=== PATIENT | female | born 1925 | race Caucasian/White ===

== ENCOUNTER 2017-04-01 11:22 | Emergency (ER) | payer MEDICARE, OTHER ==
[~2017-04-01] VITALS: Ht 154.9 cm; Wt 67.0 kg
[~2017-04-01 11:22] MED LIST: CITA20TA4 PO; IBUP1TAB5 PO; LORA0.5T PO; POTA1080 PO; TRAZ50TA12 PO; VITA10002 PO; [UNRECOGNIZED DRUG - CODE] PO
[2017-04-01 11:32] VITALS: BP 116/58; PULSE 88; RESP 16; TEMP 99.2; O2SAT 99
--- NOTE | 2017-04-01 11:44 | PD ---
HPI Chief Complaint: hip pain Time Seen by Provider: 11:25 Travel History International Travel<30 days: No Contact w/Intl Traveler<30days: No Traveled to known affect area: No History of Present Illness HPI This patient is a demented patient sent over from [facility]. There is some report that she had hip pain but the patient denies. Paramedics were called for some reason. There was no fall. She has no pain now. She moves her hip swelled. She is ambulatory without symptoms. According to the paramedics this seems to be some sort of confusion and when they tried to clarify with the son and he wanted her to get sent here to be evaluated. Severity is mild PFSH Social History Alcohol Use: No Tobacco Use: No Substance Use: No Allergies-Medications (Allergen,Severity, Reaction): Coded Allergies: Iodinated Contrast- Oral and IV Dye (Verified Allergy, Intermediate, 04/01) Reported Meds & Prescriptions Reported Meds & Active Scripts Active Ibuprofen 400 Mg Tab 400 Mg PO Q6H PRN Lorazepam 0.5 Mg Tab 0.5 Mg PO BID PRN Citalopram (Citalopram Hydrobromide) 20 Mg Tab 20 Mg PO DAILY Trazodone (Trazodone HCl) 50 Mg Tab 50 Mg PO DAILY Please give at 6pm daily Reported Multiple Vitamins/Womens (Multiple Vitamins W/ Minerals) 1 Tab Tab 1 Tab PO DAILY Potassium Citrate ER 1,080 Mg Tab 1 Tab PO BID Vitamin B-12 (Cyanocobalamin) 1,000 Mcg Tab 1,000 Mcg PO DAILY Review of Systems General / Constitutional: No: Fever HENT: No: Headaches Cardiovascular: No: Chest Pain or Discomfort Respiratory: No: Cough Physical Exam Narrative GASTROINTESTINAL: Abdomen soft, non-tender, nondistended. Positive bowel sounds. No hepato-splenomegaly, or palpable masses. No guarding. SKIN: Focused skin assessment reveals no rash or ulcers. Skin is warm and dry. Palpation shows no induration or nodules. Good range of motion of both hips with no tenderness. No long bone tenderness of the legs. They both are all well. No groin tenderness. Data Data Last Documented VS Vital Signs Date Time Temp Pulse Resp B/P (MAP) Pulse Ox O2 Delivery O2 Flow Rate FiO2 04/01/17 11:38 88 16 99 Room Air 04/01/17 11:32 99.2 116/58 (77) Orders Orders Pelvis, Ap Only (Routine) (04/01/17 ) Lorazepam (Ativan) (04/01/17 13:00) Ed Discharge Order (04/01/17 12:49) MDM Medical Decision Making Medical Screen Exam Complete: Yes Emergency Medical Condition: Yes Medical Record Reviewed: Yes Differential Diagnosis Groin strain, hip fracture, pelvic fracture Narrative Course I have reviewed the patient's electronic medical record. Unclear where they complain of groin pain came from. Possibly the patient complained about it. She doesn't recall and she is demented. I'm going to do an AP pelvis x-ray to make sure there is nothing obvious AP pelvis shows no fracture She is going to be sent back to the facility Diagnosis Primary Impression: Hip pain Qualified Codes: M25.559 - Pain in unspecified hip Additional Instructions: The patient was advised to follow up with their physician and return if they worsen. Med/Other Pt SpecificInfo: Other Disposition: 01 DISCHARGE HOME Condition: Stable Derrick Arzola MD Apr 01, 2017 11:44
--- NOTE | 2017-04-01 12:47 | RADRPT ---
EXAM DATE/TIME: 04/01/2017 12:26 [facility] COMPARISON: No previous studies available for comparison. INDICATIONS : Evaluate pelvis. Patient fell. MEDICAL HISTORY : None. SURGICAL HISTORY : None. ENCOUNTER: Initial ACUITY: 1 day PAIN SCORE: 0/10 LOCATION: Bilateral hips. FINDINGS: A single frontal view of the pelvis demonstrates no evidence of fracture. The bony pelvic ring is in tact. Bony mineralization is normal. The soft tissues are intact. CONCLUSION: No acute disease. Ankit John MD on April 01, 2017 at 12:44 Board Certified Radiologist. This report was verified electronically.
[2017-04-01] MEDS ORDERED: LORazepam 0.5 MG TAB PO ONE (13:00)
== END 2017-04-01 14:23 | disposition home or self-care (01) ==
LOC: NEPD 11:22
DX: M25.559 Pain in unspecified hip (principal)
CPT/HCPCS: 72170; 99283

== ENCOUNTER 2017-04-16 14:09 | Inpatient (IN) | payer MEDICARE, OTHER ==
[~2017-04-16] VITALS: Ht 165.1 cm; Wt 54.3 kg
[2017-04-16 14:19] VITALS: BP 148/71; PULSE 120; RESP 20; TEMP 101; O2SAT 96
[2017-04-16] MEDS ORDERED: SODIUM CHLOR 0.9% 1000 ML INJ 1,000 ML IV ONE (14:22)
[2017-04-16] MEDS ORDERED: HUMIBIDDM PO (14:26)
[2017-04-16] MEDS ORDERED: TRAZ50TA12 PO (14:26)
[2017-04-16] MEDS ORDERED: POTA10TA2 PO (14:26)
--- NOTE | 2017-04-16 14:26 | PD ---
HPI Chief Complaint: Cold / Flu Symptoms Time Seen by Provider: 14:17 Travel History International Travel<30 days: No Contact w/Intl Traveler<30days: No Traveled to known affect area: No History of Present Illness HPI 89-year-old female with history of dementia brought in from local nursing facility with question of flu. Patient has fever, a dry cough, and is noted to be tachycardic. Patient denies any significant pain, nausea, vomiting , or upper respiratory symptoms. Patient has fairly severe dementia with poor memory. She is unsure why she is here. She is allergic to iodine. [facility] Past Medical History Medical History: Unable to Obtain Dementia: Yes Diabetes: No Hypertension: Yes Medical other: Yes (HISTORY RECALLED) Tetanus Vaccination: Unknown Influenza Vaccination: No ?: Not Past Surgical History Surgical History: Unable to Obtain Social History Alcohol Use: No Tobacco Use: No Substance Use: No Allergies-Medications (Allergen,Severity, Reaction): Coded Allergies: Iodinated Contrast- Oral and IV Dye (Verified Allergy, Intermediate, ) Reported Meds & Prescriptions Reported Meds & Active Scripts Active Ibuprofen 400 Mg Tab 400 Mg PO Q6H PRN Lorazepam 0.5 Mg Tab 0.5 Mg PO BID PRN Citalopram (Citalopram Hydrobromide) 20 Mg Tab 20 Mg PO DAILY Trazodone (Trazodone HCl) 50 Mg Tab 50 Mg PO DAILY Please give at 6pm daily Reported Trazodone (Trazodone HCl) 50 Mg Tab 50 Mg PO HS Mucinex DM (Dextromethorphan-Guaifenesin) 30-600 Mg Tab 1 Tab PO BID PRN Potassium Chloride ER (Potassium Chloride) 10 Meq Tab 10 Meq PO BID Multiple Vitamins/Womens (Multiple Vitamins W/ Minerals) 1 Tab Tab 1 Tab PO DAILY Vitamin B-12 (Cyanocobalamin) 1,000 Mcg Tab 1,000 Mcg PO DAILY Review of Systems ROS Limitations: Poor Historian, Other: Except as stated in HPI: all other systems reviewed are Neg General / Constitutional: Positive: Fever, Chills Eyes: No: Visual changes HENT: Positive: Congestion, No: Headaches, Vertigo, Lightheadedness, Sore Throat, Rhinitis, Dental Difficulties, Earache Cardiovascular: No: Chest Pain or Discomfort Respiratory: Positive: Cough, No: Shortness of Breath, Wheezing Gastrointestinal: No: Abdominal Pain Genitourinary: No: Dysuria Musculoskeletal: No: Pain Skin: No Rash Neurologic: No: Weakness Psychiatric: No: Depression Endocrine: No: Polydipsia Hematologic/Lymphatic: No: Easy Bruising Physical Exam Exam Limitations: Poor Historian, Other: (dementia.) Narrative GENERAL: Patient appears in no acute distress. SKIN: Warm and dry. Mild pallor. Normal turgor. HEAD: Atraumatic. Normocephalic. EYES: Pupils equal and round. No scleral icterus. No injection or drainage. ENT: No nasal bleeding or discharge. Mucous membranes pink and moist. TMs are clear bilaterally. Pharynx appears unremarkable. NECK: Trachea midline. No JVD. CARDIOVASCULAR: Tachycardic rate and normal rhythm. No murmurs or gallops or rubs appreciated. RESPIRATORY: No accessory muscle use. Clear to auscultation. Breath sounds equal bilaterally. Dry cough noted. GASTROINTESTINAL: Abdomen soft, non-tender, nondistended. Hepatic and splenic margins not palpable. MUSCULOSKELETAL: Extremities without clubbing, cyanosis, or edema. No obvious deformities. NEUROLOGICAL: Awake and alert. No obvious cranial nerve deficits. Motor grossly within normal limits. Five out of 5 muscle strength in the arms and legs. Normal speech. PSYCHIATRIC: Appropriate mood and affect; insight and judgment normal. Data Data Last Documented VS Vital Signs Date Time Temp Pulse Resp B/P (MAP) Pulse Ox O2 Delivery O2 Flow Rate FiO2 04/16/17 15:19 113 20 132/70 (90) 95 Room Air 04/16/17 14:19 101.0 Orders Orders Sepsis Workup Initiated (04/16/17 ) Complete Blood Count With Diff (04/16/17 14:22) Comprehensive Metabolic Panel (04/16/17 14:22) Prothrombin Time / Inr (Pt) (04/16/17 14:22) Act Partial Throm Time (Ptt) (04/16/17 14:22) Lactic Acid Sepsis Protocol (04/16/17 14:22) Magnesium (Mg) (04/16/17 14:22) Urinalysis - C+S If Indicated (04/16/17 14:22) Influenzae A/B Antigen (04/16/17 14:22) Blood Culture (04/16/17 14:22) Chest, Single Ap (04/16/17 14:22) Blood Glucose (04/16/17 14:22) Ecg Monitoring (04/16/17 14:22) Iv Access Insert/Monitor (04/16/17 14:22) Cath For Specimen (04/16/17 14:22) Oximetry (04/16/17 14:22) Oxygen Administration (04/16/17 14:22) Acetaminophen (Tylenol) (04/16/17 14:30) Sodium Chlor 0.9% 1000 Ml Inj (Ns 1000 M (04/16/17 14:22) Ceftriaxone Inj (Rocephin Inj) (04/16/17 15:45) Azithromycin (Zithromax) (04/16/17 15:45) Urine Culture (04/16/17 14:50) Admit Order (Ed Use Only) (04/16/17 16:07) Labs Laboratory Tests Test 04/16/17 14:45 04/16/17 14:50 White Blood Count 18.5 TH/MM3 Red Blood Count 4.30 MIL/MM3 Hemoglobin 13.4 GM/DL Hematocrit 39.7 % Mean Corpuscular Volume 92.4 FL Mean Corpuscular Hemoglobin 31.3 PG Mean Corpuscular Hemoglobin Concent 33.9 % Red Cell Distribution Width 13.1 % Platelet Count 312 TH/MM3 Mean Platelet Volume 7.8 FL Neutrophils (%) (Auto) 88.6 % Lymphocytes (%) (Auto) 4.8 % Monocytes (%) (Auto) 6.5 % Eosinophils (%) (Auto) 0.0 % Basophils (%) (Auto) 0.1 % Neutrophils # (Auto) 16.4 TH/MM3 Lymphocytes # (Auto) 0.9 TH/MM3 Monocytes # (Auto) 1.2 TH/MM3 Eosinophils # (Auto) 0.0 TH/MM3 Basophils # (Auto) 0.0 TH/MM3 CBC Comment DIFF FINAL Differential Comment Prothrombin Time 11.4 SEC Prothromb Time International Ratio 1.1 RATIO Activated Partial Thromboplast Time 29.4 SEC Blood Urea Nitrogen 18 MG/DL Creatinine 0.97 MG/DL Random Glucose 138 MG/DL Total Protein 7.3 GM/DL Albumin 3.1 GM/DL Calcium Level 9.0 MG/DL Magnesium Level 2.0 MG/DL Alkaline Phosphatase 99 U/L Aspartate Amino Transf (AST/SGOT) 16 U/L Alanine Aminotransferase (ALT/SGPT) 17 U/L Total Bilirubin 0.7 MG/DL Sodium Level 136 MEQ/L Potassium Level 4.0 MEQ/L Chloride Level 103 MEQ/L Carbon Dioxide Level 23.8 MEQ/L Anion Gap 9 MEQ/L Estimat Glomerular Filtration Rate 54 ML/MIN Lactic Acid Level 1.4 mmol/L Urine Color YELLOW Urine Turbidity HAZY Urine pH 8.0 Urine Specific [place] 1.013 Urine Protein TRACE mg/dL Urine Glucose (UA) NEG mg/dL Urine Ketones NEG mg/dL Urine Occult Blood TRACE Urine Nitrite NEG Urine Bilirubin NEG Urine Urobilinogen 2.0 MG/DL Urine Leukocyte Esterase LARGE Urine RBC 11 /hpf Urine WBC 83 /hpf Urine Bacteria MANY /hpf Microscopic Urinalysis Comment CATH-CULTURE IND MDM Medical Decision Making Medical Screen Exam Complete: Yes Emergency Medical Condition: Yes Medical Record Reviewed: Yes Differential Diagnosis Fever. Viral illness. Influenza. Tachycardic. Sepsis. UTI. Dementia. Narrative Course Patient is medically stable at time of exam. Patient is given 650 mg acetaminophen by mouth. IV access is obtained. Labs ordered including CBC, CMP, lactic acid, urinalysis, magnesium, and rapid influenza A. Patient is given 1000 normal saline bolus. Chest x-ray shows: 1. Mild cardiomegaly with no evidence of pulmonary edema. 2. Mild patchy opacity at the left lung base which could represent early pneumonia. CBC shows leukocytosis of 18.5 with 88.6% neutrophils. Coagulation studies are unremarkable. CMP is fairly unremarkable with a GFR 54, random glucose 138, albumin is 3.1. Lactic acid is 1.4. Urinalysis is very suggestive of urinary tract infection. Rapid influenza is negative. Patient is given Rocephin 1 g IV as well as 500 mg azithromycin by mouth. Patient is discussed with Dr. Montaño who feels the patient warrants observation and IV antibiotics overnight. Call placed to the hospitalist for admission. Sepsis Criteria SIRS Criteria (2 or more): Temp > 100.9 or < 96.8, Heart rate over 90, WBC > 90468, < 4000 or > 10% bands Sepsis Criteria (SIRS+source): Infect source susp/known Criteria Outcome: Meets SIRS criteria, Meets sepsis criteria, Meets severe sepsis criteria Diagnosis Primary Impression: Sepsis Qualified Codes: A41.9 - Sepsis, unspecified organism Additional Impressions: Pneumonia Qualified Codes: J18.1 - Lobar pneumonia, unspecified organism Urinary tract infection Qualified Codes: N30.00 - Acute cystitis without hematuria Dementia Qualified Codes: F03.90 - Unspecified dementia without behavioral disturbance Admitting Information Admitting Physician Requests: Admit Condition: Seymour Ruby Apr 16, 2017 14:26
[2017-04-16] MEDS ORDERED: ACETAMINOPHEN 325 MG TAB PO ONE (14:30)
--- NOTE | 2017-04-16 14:48 | RADRPT ---
EXAM DATE/TIME: 04/16/2017 14:31 [facility] COMPARISON: No previous studies available for comparison. INDICATIONS : Fever, cough MEDICAL HISTORY : None. SURGICAL HISTORY : None. ENCOUNTER: Initial ACUITY: 1 day PAIN SCORE: 0/10 LOCATION: chest FINDINGS: A single view of the chest demonstrates the lungs to be symmetrically aerated without evidence of mas s, confluent infiltrate or effusion. The heart size is mildly prominent. Atherosclerotic changes are present in the aorta. There is mild patchy opacity at the left lung base.. Osseous structures are i ntact. CONCLUSION: 1. Mild cardiomegaly with no evidence of pulmonary edema. 2. Mild patchy opacity at the left lung base which could represent early pneumonia. Giacomo Reno MD on April 16, 2017 at 14:45 Board Certified Radiologist. This report was verified electronically.
[2017-04-16 15:19] VITALS: BP 132/70; PULSE 113; RESP 20; O2SAT 95
[2017-04-16 15:29] LABS: AUTOMATED NEUTROPHIL # 16.4 TH/MM3 (1.8-7.7); BASOPHIL % 0.1 % (0.0-2.0); HEMATOCRIT 39.7 % (35.0-46.0); HEMOGLOBIN 13.4 GM/DL (11.6-15.3); LYMPH % 4.8 % (9.0-44.0); LYMPHOCYTE # 0.9 TH/MM3 (1.0-4.8); MEAN CELL VOLUME 92.4 FL (80.0-100.0); MEAN CORPUSCULAR HEMOGLOBIN 31.3 PG (27.0-34.0); MEAN CORPUSCULAR HGB CONC 33.9 % (32.0-36.0); MEAN PLATELET VOLUME 7.8 FL (7.0-11.0); MONO % 6.5 % (0.0-8.0); MONOCYTE # 1.2 TH/MM3 (0-0.9); NEUT % 88.6 % (16.0-70.0); PLATELET COUNT 312 TH/MM3 (150-450); RED CELL DISTRIBUTION WIDTH 13.1 % (11.6-17.2); WHITE BLOOD COUNT 18.5 TH/MM3 (4.0-11.0)
[2017-04-16 15:40] LABS: ALBUMIN 3.1 GM/DL (3.4-5.0); ALT (GPT) 17 U/L (10-53); AST (GOT) 16 U/L (15-37); BICARBONATE 23.8 MEQ/L (21.0-32.0); BLOOD UREA NITROGEN 18 MG/DL (7-18); CHLORIDE 103 MEQ/L (98-107); CREATININE 0.97 MG/DL (0.50-1.00); GLOMERULAR FILTRATION RATE 54 ML/MIN (>89); GLUCOSE,RANDOM 138 MG/DL (74-106); SODIUM (NA) 136 MEQ/L (136-145)
[2017-04-16 15:41] LABS: BACTERIA, URINE MANY /hpf; BILIRUBIN, URINE NEG (NEG); BLOOD, URINE TRACE (NEG); GLUCOSE,URINE NEG (NEG); KETONE, URINE NEG (NEG); NITRITE,URINE NEG (NEG); URINE COLOR YELLOW (YELLW/STRAW); URINE LEUKOCYTE ESTERASE LARGE (NEG)
[2017-04-16 15:43] LABS: ALKALINE PHOSPHATASE 99 U/L (45-117); TOTAL BILIRUBIN ADULT 0.7 MG/DL (0.2-1.0); TOTAL PROTEIN 7.3 GM/DL (6.4-8.2)
[2017-04-16] MEDS ORDERED: AZITHROMYCIN 250 MG TAB PO ONE (15:45)
[2017-04-16] MEDS ORDERED: cefTRIAXone INJ 1,000 MG in SODIUM CHLORIDE 0.9% INJ 100 ML IV ONE (15:45)
[2017-04-16 15:50] LABS: INTERNATIONAL NORMALIZED RATIO 1.1 RATIO; PROTHROMBIN TIME - PATIENT 11.4 SEC (9.8-11.6)
--- NOTE | 2017-04-16 16:31 | HHI.HP ---
HPI Service Family Medicine Primary Care Physician Unknown Admission Diagnosis Sepsis/Pneumonia/UTI Diagnoses: International Travel<30 Days: No Contact w/Intl Traveler<30days: No Known Affected Area: No History of Present Illness 89 y/o F, pt with dementia, is sent in from [facility] for increased fever, cough and SOB this afternoon. The following information is obtained from the patient and may be in error due to cognitive status. Pt is oriented to person but not to place or time. However she does know that she lives at [facility]. She states she has been feeling weak over the last week until today when she had some coughing and shortness of breath. She currently does not feel any chest pain She originally complains of chest pain, however the pt later says she does not have any chest pain. She she admits to numbness of her arms that started yesterday. Denies any nausea/vomiting. Denies any change in by mouth intake. Denies any change in urination or bowel movements. Denies any pain. (Inez Carcamo MD R2) Review of Systems ROS Limitations: Altered Mental Status, Poor Historian Other ROS as mentioned in history of present illness Specifics were difficult to obtain because of the patient's mental status (Inez Carcamo MD R2) Past Family Social History Past Medical History Past Medical History: - Short-term memory difficulties mild cognitive impairment/early dementia History of renal calculi, no exacerbations for 20+ years Past Surgical/Procedural History: None Other Physicians/Providers Involved in the Care of Patient: previous PCP was Dr. Hall. Urologist is Dr. Vargas Family History: Father: age 64 of a heart attack Mother: in her 70s of consumption Siblings: One sister at age 94 of lung cancer, another sister alive and well at 77, brother alive at 72 with heart issues Children: 2 children alive and well Social History: Marital Status: Living Situation: Has been living at [facility] 3 years but recently moved from independent living to the assisted living unit due to memory difficulties. The patient's son is her power of litigation attorney for finances and health care. 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 Cool and dry. HEAD: Atraumatic. Normocephalic. No temporal or scalp tenderness. EYES: Pupils equal round and reactive. Extraocular motions intact. No scleral icterus. No injection or drainage. ENT: Nose without bleeding, purulent drainage or septal hematoma. Throat without erythema, tonsillar hypertrophy or exudate. Uvula midline. Airway patent. NECK: Trachea midline. No JVD or lymphadenopathy. Supple, nontender, no meningeal signs. CARDIOVASCULAR: Regular rate and rhythm without murmurs, gallops, or rubs. RESPIRATORY: Breath sounds equal bilaterally. mild wheezing and diffuse crackles. No rales, or rhonchi. GASTROINTESTINAL: Abdomen soft, non-tender, nondistended. No hepato-splenomegaly , or palpable masses. No guarding. MUSCULOSKELETAL: Extremities without clubbing, cyanosis, or edema. No joint tenderness, effusion, or edema noted. No calf tenderness. Negative Homans sign bilaterally. NEUROLOGICAL: Awake and alert. Cranial nerves II through XII intact. Motor and sensory grossly within normal limits. Five out of 5 muscle strength in all muscle groups. Normal speech. Laboratory Laboratory Tests Test 04/16/17 14:45 04/16/17 14:50 White Blood Count 18.5 Red Blood Count 4.30 Hemoglobin 13.4 Hematocrit 39.7 Mean Corpuscular Volume 92.4 Mean Corpuscular Hemoglobin 31.3 Mean Corpuscular Hemoglobin Concent 33.9 Red Cell Distribution Width 13.1 Platelet Count 312 Mean Platelet Volume 7.8 Neutrophils (%) (Auto) 88.6 Lymphocytes (%) (Auto) 4.8 Monocytes (%) (Auto) 6.5 Eosinophils (%) (Auto) 0.0 Basophils (%) (Auto) 0.1 Neutrophils # (Auto) 16.4 Lymphocytes # (Auto) 0.9 Monocytes # (Auto) 1.2 Eosinophils # (Auto) 0.0 Basophils # (Auto) 0.0 CBC Comment DIFF FINAL Differential Comment Prothrombin Time 11.4 Prothromb Time International Ratio 1.1 Activated Partial Thromboplast Time 29.4 Blood Urea Nitrogen 18 Creatinine 0.97 Random Glucose 138 Total Protein 7.3 Albumin 3.1 Calcium Level 9.0 Magnesium Level 2.0 Alkaline Phosphatase 99 Aspartate Amino Transf (AST/SGOT) 16 Alanine Aminotransferase (ALT/SGPT) 17 Total Bilirubin 0.7 Sodium Level 136 Potassium Level 4.0 Chloride Level 103 Carbon Dioxide Level 23.8 Anion Gap 9 Estimat Glomerular Filtration Rate 54 Lactic Acid Level 1.4 Urine Color YELLOW Urine Turbidity HAZY Urine pH 8.0 Urine Specific Termo 1.013 Urine Protein TRACE Urine Glucose (UA) NEG Urine Ketones NEG Urine Occult Blood TRACE Urine Nitrite NEG Urine Bilirubin NEG Urine Urobilinogen 2.0 Urine Leukocyte Esterase LARGE Urine RBC 11 Urine WBC 83 Urine Bacteria MANY Microscopic Urinalysis Comment CATH-CULTURE IND Date/Time Source Procedure Growth Status 04/16/17 14:45 Blood Peripheral Aerobic Blood Culture Pending Received 04/16/17 14:45 Blood Peripheral Anaerobic Blood Culture Pending Received 04/16/17 14:40 Nasal Washing Influenza Types A,B Antigen (JOIE) - Final NEGATIVE FOR FLU A AND B ANTIGEN.... Complete 04/16/17 14:50 Urine Catheterized Urine Urine Culture Pending Received (Inez Carcamo MD R2) Result Diagram: 04/16/17 1445 04/16/17 1445 Caprini VTE Risk Assessment Caprini VTE Risk Assessment: Mod/High Risk (score >= 2) Caprini Risk Assessment Model Point Value = 1 Point Value = 2 Point Value = 3 Point Value = 5 Age 41-60 Minor surgery BMI > 25 kg/m2 Swollen legs Varicose veins or History of unexplained or recurrent spontaneous Oral contraceptives or hormone replacement Sepsis (< 1 month) Serious lung disease, including pneumonia (< 1 month) Abnormal pulmonary function Acute myocardial infarction Congestive heart failure (< 1 month) History of inflammatory bowel disease Medical patient at bed rest Age 61-74 Arthroscopic surgery Major open surgery (> 45 min) Laparoscopic surgery (> 45 min) Malignancy Confined to bed (> 72 hours) Immobilizing plaster cast Central venous access Age >= 75 History of VTE Family history of VTE Factor V Leiden Prothrombin [id number] Lupus anticoagulant Anticardiolipin antibodies Elevated serum homocysteine Heparin-induced thrombocytopenia Other congenital or acquired thrombophilia Stroke (< 1 month) Elective arthroplasty Hip, pelvis, or leg fracture Acute spinal cord injury (< 1 month) Prophylaxis Regimen Total Risk Factor Score Risk Level Prophylaxis Regimen 0-1 Low Early ambulation 2 Moderate Order ONE of the following: *Sequential Compression Device (SCD) *Heparin 5000 units SQ BID 3-4 Higher Order ONE of the following medications: *Heparin 5000 units SQ TID *Enoxaparin/Lovenox 40 mg SQ daily (WT < 150 kg, CrCl > 30 mL/min) *Enoxaparin/Lovenox 30 mg SQ daily (WT < 150 kg, CrCl > 10-29 mL/min) *Enoxaparin/Lovenox 30 mg SQ BID (WT < 150 kg, CrCl > 30 mL/min) AND/OR *Sequential Compression Device (SCD) 5 or more Highest Order ONE of the following medications: *Heparin 5000 units SQ TID (Preferred with Epidurals) *Enoxaparin/Lovenox 40 mg SQ daily (WT < 150 kg, CrCl > 30 mL/min) *Enoxaparin/Lovenox 30 mg SQ daily (WT < 150 kg, CrCl > 10-29 mL/min) *Enoxaparin/Lovenox 30 mg SQ BID (WT < 150 kg, CrCl > 30 mL/min) AND *Sequential Compression Device (SCD) (Inez Carcamo MD R2) Assessment and Plan Assessment and Plan 89-year-old female presents with fever and tachycardia and meet sepsis criteria , with labs indicating left lower lobe pneumonia or UTI as possible cause. Code Status DNR Discussed Condition With Dr. Lei Stuart (Inez Carcamo MD R2) Problem List: (1) Sepsis ICD Codes: A41.9 - Sepsis, unspecified organism Status: Acute Plan: Fever of 101, HR 120, RR 20, WBC 18 Patient meet sepsis criteria - CXR: Mild patchy opacity at the left lung base which could represent early pneumonia - Urine: Large leukocyte esterase, negative nitrites, many bacteria f/u CXR tomorrow f/u Ucx Treat for pneumonia as below (2) Pneumonia ICD Codes: J18.9 - Pneumonia, unspecified organism Status: Acute Plan: HCAP, [facility] resident s/p Zithromax 500mg in ED s/p Ceftriazone 1g IV - Continue Zosyn IV every 6 hours - Continue Zithromax PO 500 mg daily CXR: Mild patchy opacity at the left lung base which could represent early pneumonia (3) Urinary tract infection ICD Codes: N39.0 - Urinary tract infection, site not specified Status: Acute Plan: - Urine: Large leukocyte esterase, negative nitrites, many bacteria Cont ABX as above f/u Ucx (4) fen/ppx Status: Acute Plan: Fluids: By mouth fluids Electrolytes: BMP within normal limits, follow-up BMP tomorrow Nutrition: By mouth GI prophylaxis: Not indicated DVT prophylaxis: Lovenox (Inez Carcamo MD R2) Problem List: (1) Sepsis ICD Codes: A41.9 - Sepsis, unspecified organism Status: Acute Plan: Fever of 101, HR 120, RR 20, WBC 18 Patient meet sepsis criteria - CXR: Mild patchy opacity at the left lung base which could represent early pneumonia - Urine: Large leukocyte esterase, negative nitrites, many bacteria f/u CXR tomorrow f/u Ucx Treat for pneumonia as below (2) Pneumonia ICD Codes: J18.9 - Pneumonia, unspecified organism Status: Acute Plan: HCAP, [facility] resident s/p Zithromax 500mg in ED s/p Ceftriazone 1g IV - Continue Zosyn IV every 6 hours - Continue Zithromax PO 500 mg daily CXR: Mild patchy opacity at the left lung base which could represent early pneumonia (3) Urinary tract infection ICD Codes: N39.0 - Urinary tract infection, site not specified Status: Acute Plan: - Urine: Large leukocyte esterase, negative nitrites, many bacteria Cont ABX as above f/u Ucx (4) fen/ppx Status: Acute Plan: Fluids: By mouth fluids Electrolytes: BMP within normal limits, follow-up BMP tomorrow Nutrition: By mouth GI prophylaxis: protonix DVT prophylaxis: Lovenox See the residents documentation for details. I saw and evaluated the patient regarding the mcgrath portions of this evaluation and agree with the residents findings and plans as written. Parts of this note were created using [employer] voice recognition software program. While efforts were made to correct any mistakes made by this software, some mistakes, errors, and omissions may remain in the final note that were not caught when the note was originally created. Plan of care was discussed and agreed upon with the patient as specifically documented in the above note. An opportunity to ask questions with explanation was provided. Patient voiced understanding on all information reviewed and discussed. (Johnny Odom MD) Physician Certification 2 Midnight Certification Type: Admission for Inpatient Services Order for Inpatient Services The services are ordered in accordance with Medicare regulations or non- Medicare payer requirements, as applicable. In the case of services not specified as inpatient-only, they are appropriately provided as inpatient services in accordance with the 2-midnight benchmark. Estimated LOS (days): 2 days is the estimated time the patient will need to remain in the hospital, assuming treatment plan goals are met and no additional complications. Post-Hospital Plan: Home (Inez Carcamo MD R2) Problem Qualifiers (1) Sepsis: Qualified Codes: A41.9 - Sepsis, unspecified organism (2) Pneumonia: Qualified Codes: J18.1 - Lobar pneumonia, unspecified organism (3) Urinary tract infection: Qualified Codes: N30.00 - Acute cystitis without hematuria Inez Carcamo MD R2 Apr 16, 2017 16:31 Johnny Odom MD Apr 18, 2017 12:23
[2017-04-16] MEDS ORDERED: PIPERACIL-TAZO 4.5 GM PREMIX 100 ML IV SCH (17:30)
[2017-04-16 17:34] VITALS: BP 123/60; PULSE 103; RESP 18; O2SAT 95
[2017-04-16] MEDS ORDERED: RESP: ALBUTEROL 2.5 MG/IPRATROPIUM 0.5 MG NEB (PRN) INH (17:45)
[2017-04-16] MEDS ORDERED: ACETAMINOPHEN 325 MG TAB PO PRN (17:45)
[2017-04-16] MEDS ORDERED: SODIUM CHLORIDE 0.9% FLUSH 10 ML FLUSH IV FLUSH PRN (17:45)
[2017-04-16] MEDS ORDERED: NON-FORMULARY DRUG (Dextromethorphan-Guaifenesin (Mucinex DM) 1 TAB) PO PRN (18:00)
[2017-04-16] MEDS ORDERED: LORazepam 0.5 MG TAB PO PRN (18:00)
[2017-04-16 20:45] VITALS: BP 112/74; PULSE 109; RESP 18; TEMP 99; O2SAT 80
[2017-04-16] MEDS: SODIUM CHLOR 0.9% 1000 ML INJ 1,000 ML IV SCH (23:00)
[2017-04-16] MEDS: SODIUM CHLORIDE 0.9% FLUSH 10 ML FLUSH IV FLUSH SCH (23:00)
[2017-04-16] MEDS: POTASSIUM CHLORIDE 10 MEQ CONTROLLED RELEASE TAB PO SCH (23:00)
[2017-04-16] MEDS: PIPERACIL-TAZO 3.375 GM PREMIX 50 ML IV SCH (23:01)
[2017-04-17] VITALS (11 sets, daily range): BP systolic 102–123; BP diastolic 50–58; PULSE 79–102; RESP 18–20; TEMP 98.2–99.5; O2SAT 92–95
[2017-04-17] MEDS: PIPERACIL-TAZO 3.375 GM PREMIX 50 ML IV SCH ×4 (02:24→21:52)
[2017-04-17 06:29] LABS: AUTOMATED NEUTROPHIL # 15.8 TH/MM3 (1.8-7.7); BASOPHIL % 0.2 % (0.0-2.0); HEMATOCRIT 38.3 % (35.0-46.0); HEMOGLOBIN 12.6 GM/DL (11.6-15.3); LYMPH % 6.7 % (9.0-44.0); LYMPHOCYTE # 1.2 TH/MM3 (1.0-4.8); MEAN CELL VOLUME 92.7 FL (80.0-100.0); MEAN CORPUSCULAR HEMOGLOBIN 30.5 PG (27.0-34.0); MEAN CORPUSCULAR HGB CONC 32.9 % (32.0-36.0); MEAN PLATELET VOLUME 7.4 FL (7.0-11.0); MONOCYTE # 0.9 TH/MM3 (0-0.9); NEUT % 88.1 % (16.0-70.0); PLATELET COUNT 239 TH/MM3 (150-450); RED BLOOD COUNT 4.13 MIL/MM3 (4.00-5.30); RED CELL DISTRIBUTION WIDTH 13.3 % (11.6-17.2); WHITE BLOOD COUNT 17.9 TH/MM3 (4.0-11.0)
[2017-04-17 07:09] LABS: BLOOD UREA NITROGEN 18 MG/DL (7-18); CALCIUM 8.2 MG/DL (8.5-10.1); CHLORIDE 106 MEQ/L (98-107); GLOMERULAR FILTRATION RATE 47 ML/MIN (>89); GLUCOSE,RANDOM 96 MG/DL (74-106); SODIUM (NA) 137 MEQ/L (136-145); TROPONIN I LESS THAN 0.02 NG/ML (0.02-0.05)
[2017-04-17] MEDS: MULTIVITAMINS/MINERALS THERAPEUTIC TAB PO SCH (07:47)
[2017-04-17] MEDS: POTASSIUM CHLORIDE 10 MEQ CONTROLLED RELEASE TAB PO SCH ×3 (07:48→21:53)
[2017-04-17] MEDS: traZODone HCL 50 MG TAB PO SCH (07:49)
[2017-04-17] MEDS: CITALOPRAM HYDROBROMIDE 20 MG TAB PO SCH (07:49)
[2017-04-17] MEDS: CYANOCOBALAMIN 1,000 MCG TAB PO SCH (07:49)
[2017-04-17] MEDS: AZITHROMYCIN 250 MG TAB PO SCH (07:49)
[2017-04-17] MEDS: SODIUM CHLORIDE 0.9% FLUSH 10 ML FLUSH IV FLUSH SCH ×2 (07:50→21:00)
[2017-04-17] MEDS ORDERED: MINERALS PO SCH (09:00)
[2017-04-17] MEDS ORDERED: MULTIPLE VITAMINS PO SCH (09:00)
--- NOTE | 2017-04-17 09:31 | RADRPT ---
EXAM DATE/TIME: 04/17/2017 09:07 [facility] COMPARISON: CHEST SINGLE AP, April 16, 2017, 14:31. INDICATIONS : Shortness of breath- Evaluate for pneumonia. MEDICAL HISTORY : None. SURGICAL HISTORY : None. ENCOUNTER: Subsequent ACUITY: 3 days PAIN SCORE: 0/10 LOCATION: Bilateral chest FINDINGS: Bibasilar parenchymal changes are evident increasing on the left. The heart is enlarged. The vascul arity is normal. CONCLUSION: Increasing parenchymal changes particularly on the left suspicious for inflammatory process. Cardiom egaly without overt congestive failure. Subhash Brown MD FACR on April 17, 2017 at 9:28 Board Certified Radiologist. This report was verified electronically.
--- NOTE | 2017-04-17 09:32 | HHI.FPPN ---
Subjective Remarks Pt seen and examined this morning. No acute events overnight. Patient has been afebrile. Oxygen saturation 93 -95% on room air. Pt reports feeling stable. She reports that she is breathing well and does not feel short of breath. She denies acute chest pain, abdominal pain and she has been voiding and stooling appropriately. She has no additional acute concerns. (Manolo Smith MD R3) Objective Vitals Vital Signs Date Time Temp Pulse Resp B/P (MAP) Pulse Ox O2 Delivery O2 Flow Rate FiO2 04/17/17 08:02 98.4 98 20 123/58 (79) 95 04/17/17 05:29 99.5 102 18 111/57 (75) 94 04/17/17 03:39 102 04/17/17 00:34 98.7 99 18 109/53 (71) 95 04/16/17 20:45 99.0 109 18 112/74 (87) 80 04/16/17 17:34 103 18 123/60 (81) 95 Room Air 04/16/17 15:19 113 20 132/70 (90) 95 Room Air 04/16/17 14:19 101.0 120 20 148/71 (96) 96 I/O 04/16/17 04/16/17 04/16/17 04/17/17 04/17/17 04/17/17 07:00 15:00 23:00 07:00 15:00 23:00 Intake Total 1100 ml 50 ml Balance 1100 ml 50 ml Intake IV Total 1100 ml 50 ml # Voids 1 (Manolo Smith MD R3) Result Diagram: 04/17/17 0612 04/17/17 0612 Objective Remarks GENERAL: This is a well-nourished, elderly female, in no apparent distress, lying in bed and breathing comfortably. SKIN: Cool and dry. HEAD: Atraumatic. Normocephalic. EYES: Extraocular motions intact. No scleral icterus. No injection or drainage. ENT: Nose without bleeding, purulent drainage or septal hematoma. Uvula midline. Airway patent. NECK: Trachea midline. No JVD or lymphadenopathy. CARDIOVASCULAR: Regular rate and rhythm without murmurs, gallops, or rubs. RESPIRATORY: Breath sounds equal bilaterally. Normal work of breathing. Coarse breath sounds and crackles in lower lung chow. No rales, or rhonchi. GASTROINTESTINAL: Abdomen soft, non-tender, nondistended. No guarding. MUSCULOSKELETAL: Extremities without clubbing, cyanosis, or edema. No calf tenderness. Negative Homans sign bilaterally. NEUROLOGICAL: Patient awake and alert. Oriented to person and place but not time. Motor and sensory grossly within normal limits. Normal speech. course breath sound in lower lung chow (Manolo Smith MD R3) A/P Assessment and Plan 89-year-old female presents with fever and tachycardia and meet sepsis criteria , with labs indicating left lower lobe pneumonia or UTI as possible cause. (Manolo Smith MD R3) Problem List: (1) Sepsis ICD Codes: A41.9 - Sepsis, unspecified organism Status: Acute Plan: On admission patient with Fever of 101, HR 120, RR 20, WBC 18, needing sepsis criteria. She has been afebrile overnight and this morning. Source of infection: Pneumonia, urinary tract infection - CXR 04/16: Mild patchy opacity at the left lung base which could represent early pneumonia - CXR 04/17: Increasing parenchymal changes particularly on the left suspicious for inflammatory process. - Urine: Large leukocyte esterase, negative nitrites, many bacteria, culture pending See plans below for pneumonia and UTI (2) Elevated d-dimer ICD Codes: R79.89 - Other specified abnormal findings of blood chemistry Plan: Patient with elevated d-dimer of 3.95 Unable to get CTA due to patient's allergy of iodinated contrast. We'll order a VQ scan to evaluate for possible PE (3) Pneumonia ICD Codes: J18.9 - Pneumonia, unspecified organism Status: Acute Plan: HCAP, alf resident s/p Zithromax 500mg in ED s/p Ceftriazone 1g IV - Continue Zosyn IV every 6 hours - Continue Zithromax PO 500 mg daily (4) Urinary tract infection ICD Codes: N39.0 - Urinary tract infection, site not specified Status: Acute Plan: - Urine: Large leukocyte esterase, negative nitrites, many bacteria Cont ABX as above f/u Ucx (5) fen/ppx Status: Acute Plan: Fluids: By mouth fluids Electrolytes: BMP within normal limits, and teens to monitor Nutrition: Regular diet GI prophylaxis: Not indicated DVT prophylaxis: Lovenox (Manolo Smith MD R3) Problem List: (1) Sepsis ICD Codes: A41.9 - Sepsis, unspecified organism Status: Acute Plan: On admission patient with Fever of 101, HR 120, RR 20, WBC 18, needing sepsis criteria. She has been afebrile overnight and this morning. Source of infection: Pneumonia, urinary tract infection - CXR 04/16: Mild patchy opacity at the left lung base which could represent early pneumonia - CXR 04/17: Increasing parenchymal changes particularly on the left suspicious for inflammatory process. - Urine: Large leukocyte esterase, negative nitrites, many bacteria, culture pending See plans below for pneumonia and UTI (2) Elevated d-dimer ICD Codes: R79.89 - Other specified abnormal findings of blood chemistry Plan: Patient with elevated d-dimer of 3.95 Unable to get CTA due to patient's allergy of iodinated contrast. We'll order a VQ scan to evaluate for possible PE (3) Pneumonia ICD Codes: J18.9 - Pneumonia, unspecified organism Status: Acute Plan: HCAP, alf resident s/p Zithromax 500mg in ED s/p Ceftriazone 1g IV - Continue Zosyn IV every 6 hours - Continue Zithromax PO 500 mg daily (4) Urinary tract infection ICD Codes: N39.0 - Urinary tract infection, site not specified Status: Acute Plan: - Urine: Large leukocyte esterase, negative nitrites, many bacteria Cont ABX as above f/u Ucx (5) fen/ppx Status: Acute Plan: Fluids: By mouth fluids Electrolytes: BMP within normal limits, and teens to monitor Nutrition: Regular diet GI prophylaxis: Not indicated DVT prophylaxis: Lovenox See the residents documentation for details. I saw and evaluated the patient regarding the mcgrath portions of this evaluation and agree with the residents findings and plans as written. Parts of this note were created using [employer] voice recognition software program. While efforts were made to correct any mistakes made by this software, some mistakes, errors, and omissions may remain in the final note that were not caught when the note was originally created. Plan of care was discussed and agreed upon with the patient as specifically documented in the above note. An opportunity to ask questions with explanation was provided. Patient voiced understanding on all information reviewed and discussed. (Johnny Odom MD) Problem Qualifiers (1) Sepsis: Qualified Codes: A41.9 - Sepsis, unspecified organism (2) Pneumonia: Qualified Codes: J18.1 - Lobar pneumonia, unspecified organism (3) Urinary tract infection: Qualified Codes: N30.00 - Acute cystitis without hematuria Manolo Smith MD R3 Apr 17, 2017 09:32 Johnny Odom MD Apr 18, 2017 12:29
[2017-04-17] MEDS: SODIUM CHLOR 0.9% 1000 ML INJ 1,000 ML IV SCH (14:36)
--- NOTE | 2017-04-17 16:06 | EKG ---
Date Performed: 04/17/2017 Time Performed: 00:58:26 PTAGE: 89 years EKG: Sinus rhythm Normal ECG NO PREVIOUS TRACING DOCTOR: Garland Riddle Interpretating Date/Time 04/17/2017 16:06:13
--- NOTE | 2017-04-17 16:10 | EKG ---
Date Performed: 04/17/2017 Time Performed: 08:15:52 PTAGE: 89 years EKG: Sinus rhythm POSSIBLE LEFT ATRIAL ENLARGEMENT INFERIOR MYOCARDIAL INFARCTION , PROBABLY OLD ABNORMAL ECG PREVIOUS TRACING 04/17/17 Since previous tracing, no significant change noted DOCTOR: Garland Riddle Interpretating Date/Time 04/17/2017 16:07:43
[2017-04-17] MEDS: ENOXAPARIN SODIUM 40 MG/0.4 ML SYRINGE SQ SCH (16:39)
--- NOTE | 2017-04-17 18:40 | RADRPT ---
EXAM DATE/TIME: 04/17/2017 17:51 [facility] COMPARISON: CHEST PA & LAT, April 17, 2017, 9:07. INDICATIONS : Shortness of breath for one day. DOSE: 8.7 mCi Tc99m MAA IV 0.96 mCi Tc99m DTPA aerosol MEDICAL HISTORY : Renal calculi. Dementia. SURGICAL HISTORY : None. ENCOUNTER: Initial ACUITY: 1 day PAIN SCALE: 0/10 LOCATION: chest TECHNIQUE: Following five minutes of tidal breathing of DTPA aerosol, planar images of the lungs were performed in eight projections. The patient was then injected with MAA, and eight-view perfusion scan was perf ormed. FINDINGS: Large ventilation defects are identified in the mid to lower left lung. No mismatched perfusion defec ts identified. CONCLUSION: Low probability of pulmonary embolus. Prominent ventilation defects in the left lung may represent pu lmonary consolidation. Patchy opacities are seen in these regions on chest x-ray. Eb Santos MD on April 17, 2017 at 18:35 Board Certified Radiologist. This report was verified electronically.
[2017-04-18] VITALS (8 sets, daily range): BP systolic 124–176; BP diastolic 58–76; PULSE 76–97; RESP 18–19; TEMP 97.7–98.5; O2SAT 94–98
[2017-04-18] MEDS: PIPERACIL-TAZO 3.375 GM PREMIX 50 ML IV SCH ×3 (02:44→14:07)
[2017-04-18] MEDS: SODIUM CHLOR 0.9% 1000 ML INJ 1,000 ML IV SCH ×2 (05:08→20:28)
[2017-04-18] MEDS: guaiFENesin E.R. 600 MG TAB PO PRN (05:39)
[2017-04-18 07:06] LABS: AUTOMATED NEUTROPHIL # 13.1 TH/MM3 (1.8-7.7); BASOPHIL % 0.1 % (0.0-2.0); EOSINOPHIL % 0.2 % (0.0-4.0); HEMOGLOBIN 10.7 GM/DL (11.6-15.3); LYMPH % 7.1 % (9.0-44.0); LYMPHOCYTE # 1.1 TH/MM3 (1.0-4.8); MEAN CELL VOLUME 92.3 FL (80.0-100.0); MEAN CORPUSCULAR HGB CONC 33.6 % (32.0-36.0); MEAN PLATELET VOLUME 7.5 FL (7.0-11.0); MONO % 5.9 % (0.0-8.0); MONOCYTE # 0.9 TH/MM3 (0-0.9); NEUT % 86.7 % (16.0-70.0); PLATELET COUNT 221 TH/MM3 (150-450); RED BLOOD COUNT 3.46 MIL/MM3 (4.00-5.30); RED CELL DISTRIBUTION WIDTH 13.4 % (11.6-17.2); WHITE BLOOD COUNT 15.1 TH/MM3 (4.0-11.0)
[2017-04-18 07:42] LABS: ALKALINE PHOSPHATASE 70 U/L (45-117); ALT (GPT) 12 U/L (10-53); AST (GOT) 9 U/L (15-37); BICARBONATE 18.9 MEQ/L (21.0-32.0); BLOOD UREA NITROGEN 19 MG/DL (7-18); CHLORIDE 110 MEQ/L (98-107); CREATININE 0.88 MG/DL (0.50-1.00); GLOMERULAR FILTRATION RATE 61 ML/MIN (>89); GLUCOSE,RANDOM 106 MG/DL (74-106); SODIUM (NA) 139 MEQ/L (136-145); TOTAL BILIRUBIN ADULT 0.5 MG/DL (0.2-1.0); TOTAL PROTEIN 5.4 GM/DL (6.4-8.2)
[2017-04-18] MEDS: CYANOCOBALAMIN 1,000 MCG TAB PO SCH (08:56)
[2017-04-18] MEDS: traZODone HCL 50 MG TAB PO SCH (08:56)
[2017-04-18] MEDS: AZITHROMYCIN 250 MG TAB PO SCH (08:56)
[2017-04-18] MEDS: CITALOPRAM HYDROBROMIDE 20 MG TAB PO SCH (08:56)
[2017-04-18] MEDS: MULTIVITAMINS/MINERALS THERAPEUTIC TAB PO SCH (08:56)
[2017-04-18] MEDS: SODIUM CHLORIDE 0.9% FLUSH 10 ML FLUSH IV FLUSH SCH ×2 (08:57→20:29)
[2017-04-18] MEDS: POTASSIUM CHLORIDE 10 MEQ CONTROLLED RELEASE TAB PO SCH ×2 (09:02→20:27)
[2017-04-18] MEDS ORDERED: Vancomycin Consult Pharmacy 1 EA OTHER SCH (13:30)
--- NOTE | 2017-04-18 13:40 | HHI.FPPN ---
Subjective Remarks Patient seen and examined bedside today. Patient seems to be coughing much more frequently and coughing up light brown mucus. There has been no blood in the cough. Patient continues to state that she feels okay and does not feel short of breath. She has been afebrile overnight. No acute events. (Inez Carcamo MD R2) Objective Vitals Vital Signs Date Time Temp Pulse Resp B/P (MAP) Pulse Ox O2 Delivery O2 Flow Rate FiO2 04/18/17 12:00 97.7 77 18 176/76 (109) 95 04/18/17 08:52 97.8 89 18 130/62 (84) 98 04/18/17 07:47 95 21 04/18/17 04:25 97.7 78 18 124/58 (80) 95 04/18/17 01:16 98.4 76 18 125/72 (89) 94 04/17/17 20:29 98.4 90 18 102/50 (67) 94 04/17/17 17:24 80 04/17/17 16:02 98.2 79 20 108/56 (73) 92 I/O 04/17/17 04/17/17 04/17/17 04/18/17 04/18/17 04/18/17 07:00 15:00 23:00 07:00 15:00 23:00 Intake Total 50 ml 290 ml Balance 50 ml 290 ml Intake Oral 240 ml IV Total 50 ml 50 ml # Voids 1 2 1 # Bowel Movements 2 (Inez Carcamo MD R2) Result Diagram: 04/18/17 0645 04/18/17 0645 Objective Remarks GENERAL: This is a well-nourished, elderly female, in no apparent distress, lying in bed and breathing comfortably. SKIN: Cool and dry. HEAD: Atraumatic. Normocephalic. EYES: Extraocular motions intact. No scleral icterus. No injection or drainage. ENT: Nose without bleeding, purulent drainage or septal hematoma. Uvula midline. Airway patent. NECK: Trachea midline. No JVD or lymphadenopathy. CARDIOVASCULAR: Regular rate and rhythm without murmurs, gallops, or rubs. RESPIRATORY: Breath sounds equal bilaterally. Normal work of breathing. Coarse breath sounds and crackles in lower lung chow. No rales, or rhonchi. GASTROINTESTINAL: Abdomen soft, non-tender, nondistended. No guarding. MUSCULOSKELETAL: Extremities without clubbing, cyanosis, or edema. No calf tenderness. Negative Homans sign bilaterally. NEUROLOGICAL: Patient awake and alert. Oriented to person and place but not time. Motor and sensory grossly within normal limits. Normal speech. course breath sound in lower lung chow (Inez Carcamo MD R2) A/P Assessment and Plan 89-year-old female presents with fever and tachycardia and meet sepsis criteria , with labs indicating left lower lobe pneumonia or UTI as possible cause. Discharge Planning Pending clinical improvement (Inez Carcamo MD R2) Problem List: (1) Sepsis ICD Codes: A41.9 - Sepsis, unspecified organism Status: Acute Plan: On admission patient with Fever of 101, HR 120, RR 20, WBC 18, needing sepsis criteria. She has been afebrile since 04/16 in the emergency department Source of infection: Pneumonia, urinary tract infection - CXR 04/16: Mild patchy opacity at the left lung base which could represent early pneumonia - CXR 04/17: Increasing parenchymal changes particularly on the left suspicious for inflammatory process. - Urine culture positive for Klebsiella See plans below for pneumonia and UTI (2) Elevated d-dimer ICD Codes: R79.89 - Other specified abnormal findings of blood chemistry Plan: Patient with elevated d-dimer of 3.95 Unable to get CTA due to patient's allergy of iodinated contrast. VQ scan: Normal (3) Pneumonia ICD Codes: J18.9 - Pneumonia, unspecified organism Status: Acute Plan: HCAP, [facility] s/p Zithromax 500mg in ED s/p Ceftriazone 1g IV - Continue Zosyn IV every 6 hours - Continue Zithromax PO 500 mg daily - Add vancomycin with pharmacy consulted (4) Urinary tract infection ICD Codes: N39.0 - Urinary tract infection, site not specified Status: Acute Plan: - Urine: Large leukocyte esterase, negative nitrites, many bacteria Urine culture: Klebsiella - Sensitive to Zosyn Cont ABX as above (5) fen/ppx Status: Acute Plan: Fluids: speech swallow eval, full diet after Electrolytes: BMP within normal limits, and teens to monitor Nutrition: speech swallow eval, full diet after GI prophylaxis: Not indicated DVT prophylaxis: Lovenox (Inez Carcamo MD R2) Problem List: (1) Sepsis ICD Codes: A41.9 - Sepsis, unspecified organism Status: Acute Plan: On admission patient with Fever of 101, HR 120, RR 20, WBC 18, needing sepsis criteria. She has been afebrile since 04/16 in the emergency department Source of infection: Pneumonia, urinary tract infection - CXR 04/16: Mild patchy opacity at the left lung base which could represent early pneumonia - CXR 04/17: Increasing parenchymal changes particularly on the left suspicious for inflammatory process. - Urine culture positive for Klebsiella See plans below for pneumonia and UTI (2) Elevated d-dimer ICD Codes: R79.89 - Other specified abnormal findings of blood chemistry Plan: Patient with elevated d-dimer of 3.95 Unable to get CTA due to patient's allergy of iodinated contrast. VQ scan: Normal (3) Pneumonia ICD Codes: J18.9 - Pneumonia, unspecified organism Status: Acute Plan: [facility]CAP, [facility] s/p Zithromax 500mg in ED s/p Ceftriazone 1g IV - Continue Zosyn IV every 6 hours - Continue Zithromax PO 500 mg daily - Add vancomycin with pharmacy consulted (4) Urinary tract infection ICD Codes: N39.0 - Urinary tract infection, site not specified Status: Acute Plan: - Urine: Large leukocyte esterase, negative nitrites, many bacteria Urine culture: Klebsiella - Sensitive to Zosyn Cont ABX as above (5) fen/ppx Status: Acute Plan: Fluids: speech swallow eval, full diet after Electrolytes: BMP within normal limits, and teens to monitor Nutrition: speech swallow eval, full diet after GI prophylaxis: Not indicated DVT prophylaxis: Lovenox See the residents documentation for details. I saw and evaluated the patient regarding the mcgrath portions of this evaluation and agree with the residents findings and plans as written. Parts of this note were created using [employer] voice recognition software program. While efforts were made to correct any mistakes made by this software, some mistakes, errors, and omissions may remain in the final note that were not caught when the note was originally created. Plan of care was discussed and agreed upon with the patient as specifically documented in the above note. An opportunity to ask questions with explanation was provided. Patient voiced understanding on all information reviewed and discussed. (Johnny Odom MD) Problem Qualifiers (1) Sepsis: Qualified Codes: A41.9 - Sepsis, unspecified organism (2) Pneumonia: Qualified Codes: J18.1 - Lobar pneumonia, unspecified organism (3) Urinary tract infection: Qualified Codes: N30.00 - Acute cystitis without hematuria Inez Carcamo MD R2 Apr 18, 2017 13:40 Johnny Odom MD Apr 19, 2017 10:50
--- NOTE | 2017-04-18 14:05 | HHI.HP ---
HPI Service Family Medicine Primary Care Physician Unknown Admission Diagnosis Sepsis/Pneumonia/UTI Diagnoses: (1) Sepsis (2) Elevated d-dimer (3) Pneumonia (4) Urinary tract infection (5) fen/ppx International Travel<30 Days: No Contact w/Intl Traveler<30days: No Known Affected Area: No History of Present Illness Patient was seen and examined at bedside. She is doing well. Continues to have a cough. Spoke with her daughter about her condition. No complaints overnight. No complaints from the nurse overnight. States that she continues to have a slight cough, and some shortness of breath. Denies any complaints of chest pain, lightheadedness, or abdominal discomfort. Denies any fever or chills. Does complain of a runny nose. Review of Systems Constitutional: DENIES: Fatigue, Fever, Weight gain, Weight loss Ears, nose, mouth, throat: COMPLAINS OF: Nasal discharge, DENIES: Tinnitus, Hearing loss, Vertigo Respiratory: COMPLAINS OF: Cough, Wheezing, DENIES: Apneas, Snoring, Hemoptysis Cardiovascular: DENIES: Chest pain, Palpitations, Syncope Gastrointestinal: DENIES: Abdominal pain, Black stools, Bloody stools, Constipation, Diarrhea, Nausea, Vomiting Genitourinary: DENIES: Abnormal vaginal bleeding Musculoskeletal: DENIES: Joint pain, Muscle aches, Stiffness Integumentary: DENIES: Pruritus, Rash Hematologic/lymphatic: DENIES: Bruising Neurologic: DENIES: Abnormal gait, Headache, Localized weakness, Paresthesias Psychiatric: COMPLAINS OF: Confusion, DENIES: Anxiety, Mood changes, Depression , Hallucinations, Agitation Past Family Social History Past Medical History Past Medical History: - Short-term memory difficulties mild cognitive impairment/early dementia History of renal calculi, no exacerbations for 20+ years Past Surgical/Procedural History: None Other Physicians/Providers Involved in the Care of Patient: previous PCP was Dr. Hall. Urologist is Dr. Vargas Family History: Father: age 64 of a heart attack Mother: in her 70s of consumption Siblings: One sister at age 94 of lung cancer, another sister alive and well at 77, brother alive at 72 with heart issues Children: 2 children alive and well Social History: Marital Status: Living Situation: Has been living at [facility] 3 years but recently moved from independent living to the assisted living unit due to memory difficulties. The patient's son is her power of compliance attorney for finances and health care. 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 Tobacco: None Alcohol: None Illicit drug use: none Allergies: Coded Allergies: Iodinated Contrast- Oral and IV Dye (Verified Allergy, Intermediate, ) Physical Exam Vital Signs Vital Signs Date Time Temp Pulse Resp B/P (MAP) Pulse Ox O2 Delivery O2 Flow Rate FiO2 04/18/17 12:00 97.7 77 18 176/76 (109) 95 04/18/17 08:52 97.8 89 18 130/62 (84) 98 04/18/17 07:47 95 21 04/18/17 04:25 97.7 78 18 124/58 (80) 95 04/18/17 01:16 98.4 76 18 125/72 (89) 94 04/17/17 20:29 98.4 90 18 102/50 (67) 94 04/17/17 17:24 80 04/17/17 16:02 98.2 79 20 108/56 (73) 92 Physical Exam GENERAL: This is a well-nourished, well-developed patient, in no apparent distress. SKIN: No rashes, ecchymoses or lesions. Cool and dry. HEAD: Atraumatic. Normocephalic. No temporal or scalp tenderness. EYES: Pupils equal round and reactive. Extraocular motions intact. No scleral icterus. No injection or drainage. ENT: Nose without bleeding, purulent drainage or septal hematoma. Throat with mild erythema, and postnasal drip. NECK: Trachea midline. No JVD or lymphadenopathy. Supple, nontender, no meningeal signs. CARDIOVASCULAR: Regular rate and rhythm without murmurs, gallops, or rubs. RESPIRATORY: Patient with crackles over left and right lung field. Mild bilateral wheeze No rhonchi. GASTROINTESTINAL: Abdomen soft, non-tender, nondistended. No hepato-splenomegaly , or palpable masses. No guarding. MUSCULOSKELETAL: Extremities without clubbing, cyanosis, or edema. No joint tenderness, effusion, or edema noted. No calf tenderness. Negative Homans sign bilaterally. NEUROLOGICAL: Awake and alert. Cranial nerves II through XII intact. Motor and sensory grossly within normal limits. Five out of 5 muscle strength in all muscle groups. Normal speech. Laboratory Laboratory Tests Test 04/18/17 06:45 White Blood Count 15.1 Red Blood Count 3.46 Hemoglobin 10.7 Hematocrit 32.0 Mean Corpuscular Volume 92.3 Mean Corpuscular Hemoglobin 31.0 Mean Corpuscular Hemoglobin Concent 33.6 Red Cell Distribution Width 13.4 Platelet Count 221 Mean Platelet Volume 7.5 Neutrophils (%) (Auto) 86.7 Lymphocytes (%) (Auto) 7.1 Monocytes (%) (Auto) 5.9 Eosinophils (%) (Auto) 0.2 Basophils (%) (Auto) 0.1 Neutrophils # (Auto) 13.1 Lymphocytes # (Auto) 1.1 Monocytes # (Auto) 0.9 Eosinophils # (Auto) 0.0 Basophils # (Auto) 0.0 CBC Comment DIFF FINAL Differential Comment Blood Urea Nitrogen 19 Creatinine 0.88 Random Glucose 106 Total Protein 5.4 Albumin 2.0 Calcium Level 8.0 Alkaline Phosphatase 70 Aspartate Amino Transf (AST/SGOT) 9 Alanine Aminotransferase (ALT/SGPT) 12 Total Bilirubin 0.5 Sodium Level 139 Potassium Level 3.1 Chloride Level 110 Carbon Dioxide Level 18.9 Anion Gap 10 Estimat Glomerular Filtration Rate 61 Date/Time Source Procedure Growth Status 04/16/17 14:45 Blood Peripheral Aerobic Blood Culture - Preliminary NO GROWTH IN 2 DAYS Resulted 04/16/17 14:45 Blood Peripheral Anaerobic Blood Culture - Preliminary NO GROWTH IN 2 DAYS Resulted 04/16/17 14:40 Nasal Washing Influenza Types A,B Antigen (JOIE) - Final NEGATIVE FOR FLU A AND B ANTIGEN.... Complete 04/16/17 14:50 Urine Catheterized Urine Urine Culture - Final Klebsiella Oxytoca Complete Result Diagram: 04/18/1745 04/18/17644 Caprini VTE Risk Assessment Caprini VTE Risk Assessment: Mod/High Risk (score >= 2) Caprini Risk Assessment Model Point Value = 1 Point Value = 2 Point Value = 3 Point Value = 5 Age 41-60 Minor surgery BMI > 25 kg/m2 Swollen legs Varicose veins or History of unexplained or recurrent spontaneous Oral contraceptives or hormone replacement Sepsis (< 1 month) Serious lung disease, including pneumonia (< 1 month) Abnormal pulmonary function Acute myocardial infarction Congestive heart failure (< 1 month) History of inflammatory bowel disease Medical patient at bed rest Age 61-74 Arthroscopic surgery Major open surgery (> 45 min) Laparoscopic surgery (> 45 min) Malignancy Confined to bed (> 72 hours) Immobilizing plaster cast Central venous access Age >= 75 History of VTE Family history of VTE Factor V Leiden Prothrombin [id number] Lupus anticoagulant Anticardiolipin antibodies Elevated serum homocysteine Heparin-induced thrombocytopenia Other congenital or acquired thrombophilia Stroke (< 1 month) Elective arthroplasty Hip, pelvis, or leg fracture Acute spinal cord injury (< 1 month) Prophylaxis Regimen Total Risk Factor Score Risk Level Prophylaxis Regimen 0-1 Low Early ambulation 2 Moderate Order ONE of the following: *Sequential Compression Device (SCD) *Heparin 5000 units SQ BID 3-4 Higher Order ONE of the following medications: *Heparin 5000 units SQ TID *Enoxaparin/Lovenox 40 mg SQ daily (WT < 150 kg, CrCl > 30 mL/min) *Enoxaparin/Lovenox 30 mg SQ daily (WT < 150 kg, CrCl > 10-29 mL/min) *Enoxaparin/Lovenox 30 mg SQ BID (WT < 150 kg, CrCl > 30 mL/min) AND/OR *Sequential Compression Device (SCD) 5 or more Highest Order ONE of the following medications: *Heparin 5000 units SQ TID (Preferred with Epidurals) *Enoxaparin/Lovenox 40 mg SQ daily (WT < 150 kg, CrCl > 30 mL/min) *Enoxaparin/Lovenox 30 mg SQ daily (WT < 150 kg, CrCl > 10-29 mL/min) *Enoxaparin/Lovenox 30 mg SQ BID (WT < 150 kg, CrCl > 30 mL/min) AND *Sequential Compression Device (SCD) Assessment and Plan Assessment and Plan 89-year-old female presents with fever and tachycardia and meet sepsis criteria , with labs indicating left lower lobe pneumonia or UTI as possible cause. Problem List: (1) Sepsis ICD Codes: A41.9 - Sepsis, unspecified organism Status: Acute Plan: Patient currently being treated for her pneumonia. Placed on septic protocol With her about her current care, and discussed it with her daughter. We'll continue surveillance, and antibiotic broad-spectrum (2) Elevated d-dimer ICD Codes: R79.89 - Other specified abnormal findings of blood chemistry Plan: Negative VQ scan (3) Pneumonia ICD Codes: J18.9 - Pneumonia, unspecified organism Status: Acute Plan: Patient placed on broad-spectrum antibiotics Currently she and is on azithromycin, vancomycin, and Zosyn Continue with HCAP (4) Urinary tract infection ICD Codes: N39.0 - Urinary tract infection, site not specified Status: Acute Plan: Continue treatment with Zosyn Patient denies any symptoms at this time (5) fen/ppx Status: Acute Plan: Fluids: speech swallow eval, full diet after Electrolytes: BMP within normal limits, and teens to monitor Nutrition: speech swallow eval, full diet after GI prophylaxis: Not indicated DVT prophylaxis: Lovenox See the residents documentation for details. I saw and evaluated the patient regarding the mcgrath portions of this evaluation and agree with the residents findings and plans as written. Parts of this note were created using [employer] voice recognition software program. While efforts were made to correct any mistakes made by this software, some mistakes, errors, and omissions may remain in the final note that were not caught when the note was originally created. Plan of care was discussed and agreed upon with the patient as specifically documented in the above note. An opportunity to ask questions with explanation was provided. Patient voiced understanding on all information reviewed and discussed. Physician Certification 2 Midnight Certification Type: Admission for Inpatient Services Order for Inpatient Services The services are ordered in accordance with Medicare regulations or non- Medicare payer requirements, as applicable. In the case of services not specified as inpatient-only, they are appropriately provided as inpatient services in accordance with the 2-midnight benchmark. Estimated LOS (days): 2 days is the estimated time the patient will need to remain in the hospital, assuming treatment plan goals are met and no additional complications. Post-Hospital Plan: Home Problem Qualifiers (1) Sepsis: Qualified Codes: A41.9 - Sepsis, unspecified organism (2) Pneumonia: Qualified Codes: J18.1 - Lobar pneumonia, unspecified organism (3) Urinary tract infection: Qualified Codes: N30.00 - Acute cystitis without hematuria Johnny Odom MD Apr 18, 2017 14:05
[2017-04-18] MEDS: PANTOPRAZOLE SOD 40 MG DELAYED RELEASE TAB PO SCH (14:07)
--- NOTE | 2017-04-18 15:45 | RADRPT ---
EXAM DATE/TIME: 04/18/2017 15:27 [facility] COMPARISON: CHEST PA & LAT, April 17, 2017, 9:07. INDICATIONS : Pneumonia. MEDICAL HISTORY : Renal calculi. Dementia. SURGICAL HISTORY : None. ENCOUNTER: Subsequent ACUITY: 1 day PAIN SCORE: 0/10 LOCATION: Bilateral chest FINDINGS: AP erect and lateral views of the chest were obtained and again demonstrate moderate cardiomegaly. Th ere is hazy left perihilar and basilar opacity remaining. A retrocardiac hiatal hernia is again noted with air-fluid level. There is blunting of left posterior costophrenic angle. Bony thorax is intact. CONCLUSION: 1. Hazy left perihilar and left lower lobe infiltrate remaining. There is a probable small left effus ion. 2. Moderate cardiomegaly. Giacomo Reno MD on April 18, 2017 at 15:41 Board Certified Radiologist. This report was verified electronically.
[2017-04-18] MEDS: VANCOMYCIN 1,000 MG/NS 250 ML IV SCH ×2 (16:02)
[2017-04-18] MEDS: ENOXAPARIN SODIUM 40 MG/0.4 ML SYRINGE SQ SCH (17:35)
[2017-04-18] MEDS: PIPERACILLIN/TAZ 3.375 GM VIAL 3.375 GM in SODIUM CHLORIDE 0.9% INJ 100 ML IV SCH (20:27)
[2017-04-19] MEDS: DEXTROMETHORPHAN SYRUP 7.5MG/5ML UDC PO PRN ×2 (00:26→13:57)
[2017-04-19 01:00] VITALS: BP 135/65; PULSE 88; RESP 20; TEMP 98.8; O2SAT 94
[2017-04-19] MEDS: SODIUM CHLOR 0.9% 1000 ML INJ 1,000 ML IV SCH ×2 (01:20→13:46)
[2017-04-19] MEDS: PIPERACILLIN/TAZ 3.375 GM VIAL 3.375 GM in SODIUM CHLORIDE 0.9% INJ 100 ML IV SCH ×4 (02:30→22:11)
[2017-04-19 08:00] VITALS: BP 153/71; PULSE 79; RESP 18; TEMP 98.4; O2SAT 95
[2017-04-19] MEDS: AZITHROMYCIN INJ 500 MG in SODIUM CHLOR 0.9% 250 ML INJ 250 ML IV SCH (08:32)
[2017-04-19] MEDS: SODIUM CHLORIDE 0.9% FLUSH 10 ML FLUSH IV FLUSH SCH ×2 (08:32→22:10)
[2017-04-19] MEDS: traZODone HCL 50 MG TAB PO SCH (08:34)
[2017-04-19] MEDS: guaiFENesin E.R. 600 MG TAB PO PRN (08:34)
[2017-04-19] MEDS: PANTOPRAZOLE SOD 40 MG DELAYED RELEASE TAB PO SCH (08:34)
[2017-04-19] MEDS: CITALOPRAM HYDROBROMIDE 20 MG TAB PO SCH (08:34)
[2017-04-19] MEDS: POTASSIUM CHLORIDE 10 MEQ CONTROLLED RELEASE TAB PO SCH ×2 (08:34→22:10)
[2017-04-19] MEDS: CYANOCOBALAMIN 1,000 MCG TAB PO SCH (08:34)
[2017-04-19] MEDS: MULTIVITAMINS/MINERALS THERAPEUTIC TAB PO SCH (08:34)
--- NOTE | 2017-04-19 10:35 | HHI.FPPN ---
Subjective Remarks Patient seen and examined at bedside. No acute events overnight. Denies CP or SOB. Pt stated she does not feel well, but unable to express why stated "just don't feel myself". Objective Vitals Vital Signs Date Time Temp Pulse Resp B/P (MAP) Pulse Ox O2 Delivery O2 Flow Rate FiO2 04/19/17 08:00 98.4 79 18 153/71 (98) 95 04/19/17 01:00 98.8 88 20 135/65 (88) 94 04/18/17 21:50 98.1 90 19 136/63 (87) 94 04/18/17 20:00 88 04/18/17 16:00 98.5 97 18 149/67 (94) 97 04/18/17 12:00 97.7 77 18 176/76 (109) 95 I/O 04/18/17 04/18/17 04/18/17 04/19/17 04/19/17 04/19/17 07:00 15:00 23:00 07:00 15:00 23:00 Intake Total 50 ml 250 ml 500 ml Balance 50 ml 250 ml 500 ml Intake Oral 0 ml 500 ml IV Total 50 ml 250 ml # Voids 8 4 # Bowel Movements 0 0 Result Diagram: 04/18/17 0645 04/18/17 0645 Objective Remarks GENERAL: This is a well-nourished, elderly female, in no apparent distress, lying in bed and breathing comfortably. SKIN: Cool and dry. HEAD: Atraumatic. Normocephalic. EYES: Extraocular motions intact. No scleral icterus. No injection or drainage. ENT: Nose without bleeding, purulent drainage or septal hematoma. Uvula midline. Airway patent. NECK: Trachea midline. No JVD or lymphadenopathy. CARDIOVASCULAR: Regular rate and rhythm without murmurs, gallops, or rubs. RESPIRATORY: Breath sounds equal bilaterally. Normal work of breathing. Coarse breath sounds and crackles in lower lung chow. No rales, or rhonchi. GASTROINTESTINAL: Abdomen soft, non-tender, nondistended. No guarding. MUSCULOSKELETAL: Extremities without clubbing, cyanosis, or edema. No calf tenderness. Negative Homans sign bilaterally. NEUROLOGICAL: Patient awake and alert. Oriented to person and place but not time. Motor and sensory grossly within normal limits. Normal speech. A/P Assessment and Plan 89-year-old female presents with fever and tachycardia and meet sepsis criteria , with labs indicating left lower lobe pneumonia or UTI as possible cause. Discharge Planning Pending clinical improvement Problem List: (1) Sepsis ICD Codes: A41.9 - Sepsis, unspecified organism Status: Acute Plan: Patient currently being treated for her pneumonia. Placed on septic protocol We'll continue surveillance, and antibiotic broad-spectrum (2) Elevated d-dimer ICD Codes: R79.89 - Other specified abnormal findings of blood chemistry Plan: Negative VQ scan (3) Pneumonia ICD Codes: J18.9 - Pneumonia, unspecified organism Status: Acute Plan: Patient placed on broad-spectrum antibiotics Currently she and is on azithromycin, vancomycin, and Zosyn Continue with HCAP (4) Urinary tract infection ICD Codes: N39.0 - Urinary tract infection, site not specified Status: Acute Plan: Continue treatment with Zosyn Patient denies any symptoms at this time (5) fen/ppx Status: Acute Plan: Fluids: speech swallow eval, full diet after Electrolytes: BMP within normal limits, and teens to monitor Nutrition: speech swallow eval, full diet after GI prophylaxis: Not indicated DVT prophylaxis: Lovenox See the residents documentation for details. I saw and evaluated the patient regarding the mcgrath portions of this evaluation and agree with the residents findings and plans as written. Parts of this note were created using [employer] voice recognition software program. While efforts were made to correct any mistakes made by this software, some mistakes, errors, and omissions may remain in the final note that were not caught when the note was originally created. Plan of care was discussed and agreed upon with the patient as specifically documented in the above note. An opportunity to ask questions with explanation was provided. Patient voiced understanding on all information reviewed and discussed. Problem Qualifiers (1) Sepsis: Qualified Codes: A41.9 - Sepsis, unspecified organism (2) Pneumonia: Qualified Codes: J18.1 - Lobar pneumonia, unspecified organism (3) Urinary tract infection: Qualified Codes: N30.00 - Acute cystitis without hematuria Ashwini Stuart MD, R1 Apr 19, 2017 10:35
[2017-04-19 12:00] VITALS: BP 136/67; PULSE 75; RESP 18; TEMP 98.1; O2SAT 95
[2017-04-19] MEDS ORDERED: POTASSIUM CHLORIDE 10 MEQ CONTROLLED RELEASE TAB PO ONE (12:00)
[2017-04-19 12:55] LABS: AUTOMATED NEUTROPHIL # 10.2 TH/MM3 (1.8-7.7); BASOPHIL % 0.3 % (0.0-2.0); EOSINOPHIL # 0.1 TH/MM3 (0-0.4); EOSINOPHIL % 0.9 % (0.0-4.0); HEMATOCRIT 36.5 % (35.0-46.0); HEMOGLOBIN 12.2 GM/DL (11.6-15.3); LYMPH % 7.8 % (9.0-44.0); MEAN CELL VOLUME 92.9 FL (80.0-100.0); MEAN CORPUSCULAR HEMOGLOBIN 31.2 PG (27.0-34.0); MEAN CORPUSCULAR HGB CONC 33.5 % (32.0-36.0); MEAN PLATELET VOLUME 7.6 FL (7.0-11.0); MONO % 6.9 % (0.0-8.0); MONOCYTE # 0.8 TH/MM3 (0-0.9); NEUT % 84.1 % (16.0-70.0); PLATELET COUNT 327 TH/MM3 (150-450); RED BLOOD COUNT 3.93 MIL/MM3 (4.00-5.30); RED CELL DISTRIBUTION WIDTH 13.4 % (11.6-17.2); WHITE BLOOD COUNT 12.2 TH/MM3 (4.0-11.0)
[2017-04-19 13:16] LABS: BICARBONATE 18.7 MEQ/L (21.0-32.0); CREATININE 0.82 MG/DL (0.50-1.00)
[2017-04-19 13:29] LABS: BANDS 11 % (0-6); LYMPHOCYTES 6 % (9-44); METAMYELOCYTES 2 % (0-1); MONOCYTES 3 % (0-8); MYELOCYTES 2 % (0-0); NEUTROPHIL # MANUAL DIFF 11.1 TH/MM3 (1.8-7.7); POLYS (SEG NEUTROPHILS) 75 % (16-70); PROMYELOCYTES 1 % (0-0)
[2017-04-19 16:00] VITALS: BP 132/62; PULSE 83; RESP 18; TEMP 98.1; O2SAT 97
[2017-04-19] MEDS: VANCOMYCIN 1,000 MG/NS 250 ML IV SCH ×2 (16:04)
[2017-04-19] MEDS: ENOXAPARIN SODIUM 40 MG/0.4 ML SYRINGE SQ SCH (18:00)
[2017-04-19 21:00] VITALS: BP 130/68; PULSE 101; RESP 19; TEMP 98.8; O2SAT 94
[2017-04-20] VITALS (7 sets, daily range): BP systolic 128–172; BP diastolic 62–79; PULSE 79–90; RESP 17–20; TEMP 97.5–98.8; O2SAT 90–98
[2017-04-20] MEDS: PIPERACILLIN/TAZ 3.375 GM VIAL 3.375 GM in SODIUM CHLORIDE 0.9% INJ 100 ML IV SCH (02:44)
[2017-04-20] MEDS: SODIUM CHLOR 0.9% 1000 ML INJ 1,000 ML IV SCH ×3 (02:44→22:39)
[2017-04-20] MEDS ORDERED: PIPERACILLIN/TAZ 3.375 GM VIAL 3.375 GM in SODIUM CHLORIDE 0.9% INJ 50 ML IV SCH (08:00)
[2017-04-20 08:12] LABS: AUTOMATED NEUTROPHIL # 8.2 TH/MM3 (1.8-7.7); BASOPHIL % 0.3 % (0.0-2.0); EOSINOPHIL # 0.1 TH/MM3 (0-0.4); EOSINOPHIL % 0.9 % (0.0-4.0); HEMOGLOBIN 12.6 GM/DL (11.6-15.3); LYMPH % 9.2 % (9.0-44.0); LYMPHOCYTE # 0.9 TH/MM3 (1.0-4.8); MEAN CELL VOLUME 91.4 FL (80.0-100.0); MEAN CORPUSCULAR HEMOGLOBIN 31.9 PG (27.0-34.0); MEAN CORPUSCULAR HGB CONC 34.9 % (32.0-36.0); MEAN PLATELET VOLUME 7.4 FL (7.0-11.0); MONOCYTE # 0.9 TH/MM3 (0-0.9); NEUT % 80.6 % (16.0-70.0); PLATELET COUNT 337 TH/MM3 (150-450); RED BLOOD COUNT 3.94 MIL/MM3 (4.00-5.30); RED CELL DISTRIBUTION WIDTH 13.5 % (11.6-17.2); WHITE BLOOD COUNT 10.2 TH/MM3 (4.0-11.0)
--- NOTE | 2017-04-20 08:21 | RADRPT ---
EXAM DATE/TIME: 04/20/2017 08:11 [facility] COMPARISON: CHEST PA & LAT, April 18, 2017, 15:27. INDICATIONS : Cough and short of breath. MEDICAL HISTORY : Renal calculi. Dementia. SURGICAL HISTORY : None. ENCOUNTER: Subsequent ACUITY: 4 - 6 days PAIN SCORE: 0/10 LOCATION: Bilateral chest FINDINGS: Frontal and lateral views of the chest demonstrate a normal-sized cardiac silhouette with calcificati on of the aorta. There is a retrocardiac air-containing structure representing a hiatal hernia. There are small bibasilar pleural-parenchymal opacities. There is airspace opacity in the left midlung zon e. No pneumothorax is identified. Bones and soft tissues demonstrate no acute finding. CONCLUSION: 1. Stable small bilateral pleural effusions with associated atelectasis and/or consolidation at both lung bases. 2. There is new mild airspace opacity left midlung zone representing either atelectasis or airspace c onsolidation. 3. Stable small hiatal hernia. Tom Vaughn MD on April 20, 2017 at 8:16 Board Certified Radiologist. This report was verified electronically.
[2017-04-20 08:33] LABS: CREATININE 0.65 MG/DL (0.50-1.00)
[2017-04-20] MEDS: SODIUM CHLORIDE 0.9% FLUSH 10 ML FLUSH IV FLUSH SCH ×2 (09:00→22:38)
[2017-04-20] MEDS: MULTIVITAMINS/MINERALS THERAPEUTIC TAB PO SCH (10:23)
[2017-04-20] MEDS: CITALOPRAM HYDROBROMIDE 20 MG TAB PO SCH (10:23)
[2017-04-20] MEDS: PANTOPRAZOLE SOD 40 MG DELAYED RELEASE TAB PO SCH (10:23)
[2017-04-20] MEDS: CYANOCOBALAMIN 1,000 MCG TAB PO SCH (10:24)
[2017-04-20] MEDS: POTASSIUM CHLORIDE 10 MEQ CONTROLLED RELEASE TAB PO SCH ×2 (10:25→22:36)
[2017-04-20] MEDS: traZODone HCL 50 MG TAB PO SCH (10:33)
[2017-04-20] MEDS: AZITHROMYCIN INJ 500 MG in SODIUM CHLOR 0.9% 250 ML INJ 250 ML IV SCH (11:07)
--- NOTE | 2017-04-20 11:45 | HHI.FPPN ---
Subjective Remarks Pt seen and examined bedside this morning. Pt states she is much improved. She appears to be comfortable and has an appetite. She has not had any difficulty per nursing. She is not coughing during the time of exam. She states she would like to go home. Denies fever/chills. Denies CP/SOB/dizziness. (Inze Carcamo MD R2) Remarks Attending note: Patient seen with resident team. Is pleasant alert however is notably confused. Unable to engage in meaningful conversation. Appears to be free of somatic complaints. Discussed with nursing team. (Regan Sánchez MD) Objective Vitals Vital Signs Date Time Temp Pulse Resp B/P (MAP) Pulse Ox O2 Delivery O2 Flow Rate FiO2 04/20/17 11:40 98.3 88 17 138/77 (97) 96 04/20/17 07:54 97.5 88 18 155/69 (97) 90 04/20/17 05:30 98.8 80 20 133/62 (85) 98 04/20/17 00:15 98.8 89 19 128/68 (88) 98 04/19/17 21:00 98.8 101 19 130/68 (88) 94 04/19/17 16:00 98.1 83 18 132/62 (85) 97 04/19/17 12:00 98.1 75 18 136/67 (90) 95 I/O 04/19/17 04/19/17 04/19/17 04/20/17 04/20/17 04/20/17 07:00 15:00 23:00 07:00 15:00 23:00 Intake Total 500 ml 1350 ml 850 ml 450 ml Balance 500 ml 1350 ml 850 ml 450 ml Intake Oral 500 ml 500 ml 450 ml IV Total 1350 ml 350 ml # Voids 4 3 6 # Bowel Movements 0 0 0 (Inez Carcamo MD R2) Result Diagram: 04/20/1724 04/20/17723 Objective Remarks GENERAL: This is a well-nourished, elderly female, in no apparent distress, sitting in chair with breakfast and sitting comfortably SKIN: Cool and dry. HEAD: Atraumatic. Normocephalic. EYES: Extraocular motions intact. No scleral icterus. No injection or drainage. ENT: Nose without bleeding, purulent drainage or septal hematoma. Uvula midline. Airway patent. NECK: Trachea midline. No JVD or lymphadenopathy. CARDIOVASCULAR: Regular rate and rhythm without murmurs, gallops, or rubs. RESPIRATORY: Breath sounds equal bilaterally. Normal work of breathing. Mild crackles in left lower lobe. No rales, or rhonchi. GASTROINTESTINAL: Abdomen soft, non-tender, nondistended. No guarding. MUSCULOSKELETAL: Extremities without clubbing, cyanosis, or edema. No calf tenderness. Negative Homans sign bilaterally. NEUROLOGICAL: Patient awake and alert. Oriented to person and place but not time. Motor and sensory grossly within normal limits. Normal speech. (Inez Carcamo MD R2) Other Results Attending exam 04/20/17: General appearance older woman who makes eye contact, has conversation but unable to engage in meaningful conversation. Her a pleasant demeanor. Vital signs noted. Afebrile blood pressure 172/79 pulse 79 respirations 17 HEENT: Nonlocalizing. Neck: Supple, no adenopathy or bruits appreciated. Lungs: Diminished breath sounds especially at the bases with some fibrotic-type rales Cardiac regular rhythm appreciated at the bedside, no S3, difficult to assess for murmurs. Abdomen: Soft, nontender, no obvious masses. Extremities: Feet are warm and dry, edema, does not appear to have any calf tenderness. (Regan Sánchez MD) A/P Assessment and Plan 89-year-old female presents with fever and tachycardia and meet sepsis criteria , with labs indicating left lower lobe pneumonia or UTI as possible cause. Discharge Planning Pending clinical improvement (Inez Carcamo MD R2) Assessment and Plan Clinical assessment 04/20/17: Elderly delightful patient with significant dementia who resides at [facility] slowly improving. Treatment for the pneumonia has been impaired, there were no cultures or sputum that reveal a specific organism. Discussed with the resident team the management of the patient transitioning to by mouth and plans to return to the assisted living facility on 04/21/17. Physician in agreement with the resident team assessments , orders for diagnostic treatment and disposition (Regan Sánchez MD) Problem List: (1) Sepsis ICD Codes: A41.9 - Sepsis, unspecified organism Status: Acute Plan: Patient currently being treated for her pneumonia. Placed on septic protocol We'll continue surveillance, and antibiotic broad-spectrum (2) Elevated d-dimer ICD Codes: R79.89 - Other specified abnormal findings of blood chemistry Plan: Negative VQ scan (3) Pneumonia ICD Codes: J18.9 - Pneumonia, unspecified organism Status: Acute Plan: Patient placed on broad-spectrum antibiotics Currently she and is on azithromycin, vancomycin, and Zosyn Switch to PO abx: Azithromycin and Augmentin Plan for D/C tomorrow if continued clinical improvement on PO abx (4) Urinary tract infection ICD Codes: N39.0 - Urinary tract infection, site not specified Status: Acute Plan: + Klebsiella Solorio-Sensitive Will be covered with PO Augmentin (5) fen/ppx Status: Acute Plan: Fluids: speech swallow eval, full diet after Electrolytes: BMP within normal limits, and teens to monitor Nutrition: speech swallow eval, full diet after GI prophylaxis: Not indicated DVT prophylaxis: Lovenox (Inez Carcamo MD R2) Problem Qualifiers (1) Sepsis: Qualified Codes: A41.9 - Sepsis, unspecified organism (2) Pneumonia: Qualified Codes: J18.1 - Lobar pneumonia, unspecified organism (3) Urinary tract infection: Qualified Codes: N30.00 - Acute cystitis without hematuria Inez Carcamo MD R2 Apr 20, 2017 11:45 Regan Sánchez MD Apr 20, 2017 22:41
[2017-04-20 12:39] LABS: BANDS 13 % (0-6); LYMPHOCYTES 8 % (9-44); METAMYELOCYTES 4 % (0-1); MONOCYTES 13 % (0-8); MYELOCYTES 4 % (0-0); NEUTROPHIL # MANUAL DIFF 7.8 TH/MM3 (1.8-7.7); POLYS (SEG NEUTROPHILS) 55 % (16-70)
[2017-04-20] MEDS: ENOXAPARIN SODIUM 40 MG/0.4 ML SYRINGE SQ SCH (18:26)
[2017-04-20] MEDS: AMOXICILLIN/CLAVULANATE K 875 MG TAB PO SCH (22:36)
[2017-04-21] VITALS (11 sets, daily range): BP systolic 126–183; BP diastolic 69–93; PULSE 80–109; RESP 17–18; TEMP 98–98.5; O2SAT 94–97
[2017-04-21] MEDS: SODIUM CHLORIDE 0.9% FLUSH 10 ML FLUSH IV FLUSH SCH (09:00)
[2017-04-21] MEDS: SODIUM CHLOR 0.9% 1000 ML INJ 1,000 ML IV SCH (09:10)
[2017-04-21] MEDS: CYANOCOBALAMIN 1,000 MCG TAB PO SCH (09:11)
[2017-04-21] MEDS: MULTIVITAMINS/MINERALS THERAPEUTIC TAB PO SCH (09:11)
[2017-04-21] MEDS ORDERED: METOPROLOL TARTRATE 25 MG TAB PO SCH (09:15)
[2017-04-21] MEDS ORDERED: PILL SPLITTER OTHER PRN (09:15)
[2017-04-21] MEDS: AMOXICILLIN/CLAVULANATE K 875 MG TAB PO SCH (09:40)
[2017-04-21] MEDS: CITALOPRAM HYDROBROMIDE 20 MG TAB PO SCH (09:41)
[2017-04-21] MEDS: POTASSIUM CHLORIDE 10 MEQ CONTROLLED RELEASE TAB PO SCH (09:41)
[2017-04-21] MEDS: traZODone HCL 50 MG TAB PO SCH (09:41)
[2017-04-21] MEDS: PANTOPRAZOLE SOD 40 MG DELAYED RELEASE TAB PO SCH (09:42)
[2017-04-21 10:26] LABS: BASOPHIL % 0.3 % (0.0-2.0); EOSINOPHIL # 0.1 TH/MM3 (0-0.4); EOSINOPHIL % 0.7 % (0.0-4.0); HEMATOCRIT 37.2 % (35.0-46.0); HEMOGLOBIN 12.6 GM/DL (11.6-15.3); LYMPH % 9.2 % (9.0-44.0); LYMPHOCYTE # 1.2 TH/MM3 (1.0-4.8); MEAN CELL VOLUME 92.8 FL (80.0-100.0); MEAN CORPUSCULAR HEMOGLOBIN 31.4 PG (27.0-34.0); MEAN CORPUSCULAR HGB CONC 33.8 % (32.0-36.0); MEAN PLATELET VOLUME 7.3 FL (7.0-11.0); MONO % 9.4 % (0.0-8.0); MONOCYTE # 1.2 TH/MM3 (0-0.9); NEUT % 80.4 % (16.0-70.0); PLATELET COUNT 343 TH/MM3 (150-450); RED BLOOD COUNT 4.01 MIL/MM3 (4.00-5.30); RED CELL DISTRIBUTION WIDTH 13.6 % (11.6-17.2); WHITE BLOOD COUNT 12.5 TH/MM3 (4.0-11.0)
[2017-04-21 10:53] LABS: BICARBONATE 16.9 MEQ/L (21.0-32.0); CALCIUM 8.7 MG/DL (8.5-10.1); CREATININE 0.66 MG/DL (0.50-1.00)
[2017-04-21 11:25] LABS: BANDS 10 % (0-6); BASOPHILS 1 % (0-2); LYMPHOCYTES 9 % (9-44); METAMYELOCYTES 5 % (0-1); MONOCYTES 12 % (0-8); MYELOCYTES 4 % (0-0); NEUTROPHIL # MANUAL DIFF 9.8 TH/MM3 (1.8-7.7); POLYS (SEG NEUTROPHILS) 59 % (16-70)
[2017-04-21] MEDS ORDERED: AZITHROMYCIN 250 MG TAB PO ONE (12:00)
[2017-04-21] MEDS ORDERED: AMOX875T2 PO (13:27)
[2017-04-21] MEDS ORDERED: METO25TA3 PO (13:27)
[2017-04-21] MEDS ORDERED: POTA10TA2 PO (13:27)
--- NOTE | 2017-04-21 13:35 | HHI.DCPOC ---
Discharge Care Plan Diagnosis: (1) Pneumonia (2) Urinary tract infection (3) Hypokalemia (4) Sepsis (5) Dementia Goals to Promote Your Health * To prevent worsening of your condition and complications * To maintain your health at the optimal level Directions to Meet Your Goals Take your medications as prescribed Follow your dietary instruction Follow activity as directed Keep your appointments as scheduled Take your immunizations and boosters as scheduled If your symptoms worsen call your PCP, if no PCP go to Urgent Care Center or Emergency Room Smoking is Dangerous to Your Health. Avoid second hand smoke Call the 24-hour hour crisis hotline for domestic abuse at Ashwini Stuart MD, R1 Apr 21, 2017 13:35
--- NOTE | 2017-04-21 13:39 | HHI.FF ---
Face to Face Verification Diagnosis: (1) Urinary tract infection (2) Dementia (3) Sepsis (4) Pneumonia Physical Therapy Order: Evaluate and Treat Occupational Therapy Order: Evaluate and Treat Home Health Nursing Order: Nursing assessment with vital signs Home Health Aide Order: To Assist In: Bathing and personal care Cock[employer] Lounge Manager Order: To Evaluate: Living conditions/environment, Support services Order: To Provide: Community services I have seen patient Marina Cordova on 04/21/17. My clinical findings support the need for the requested home health care services because: Impaired cognition/judgement I certify that my clinical findings support that this patient is homebound because: Impaired cognitive ability/safety Unable to use public transportation Ashwini Stuart MD, R1 Apr 21, 2017 13:39
--- NOTE | 2017-04-21 13:42 | HHI.FPPN ---
Objective Vitals Vital Signs Date Time Temp Pulse Resp B/P (MAP) Pulse Ox O2 Delivery O2 Flow Rate FiO2 04/21/17 11:36 98.0 90 18 133/76 (95) 95 04/21/17 11:33 95 04/21/17 09:03 92 144/77 (99) 04/21/17 08:19 98.5 109 18 183/93 (123) 95 04/21/17 05:06 90 153/78 (103) 04/21/17 04:30 81 04/21/17 04:30 147/76 (99) 04/21/17 04:18 98.5 92 17 176/82 (113) 97 04/21/17 00:30 80 04/21/17 00:00 98.1 89 18 144/69 (94) 94 04/20/17 20:30 98.3 79 17 172/79 (110) 97 04/20/17 18:20 90 04/20/17 16:12 98.7 84 18 147/70 (95) 98 I/O 04/20/17 04/20/17 04/20/17 04/21/17 04/21/17 04/21/17 07:00 15:00 23:00 07:00 15:00 23:00 Intake Total 450 ml 480 ml 120 ml Balance 450 ml 480 ml 120 ml Intake Oral 450 ml 480 ml 120 ml # Voids 6 2 3 # Bowel Movements 0 (Ashwini Stuart MD, R1) Result Diagram: 04/21/17 0930 04/21/17 0930 Objective Remarks (Ashwini Stuart MD, R1) A/P Assessment and Plan Clinical assessment 04/20/17: Elderly delightful patient with significant dementia who resides at [facility] slowly improving. Treatment for the pneumonia has been impaired, there were no cultures or sputum that reveal a specific organism. Discussed with the resident team the management of the patient transitioning to by mouth and plans to return to the assisted living facility on 04/21/17. Physician in agreement with the resident team assessments , orders for diagnostic treatment and disposition Discharge Planning Pending clinical improvement (Ashwini Stuart MD, R1) Assessment and Plan Clinical attending assessment 04/21/17:Patient seen and examined. Case reviewed and discussed with the resident team. Agree with plan of care as discussed with me and documented in the resident note. Patient appears quite stable for discharge. Outpatient antibiotics, transfer to skilled facility at [facility], PT and OT, discussed with Dr. Red's, address her tachycardia and labile blood pressure. (Regan Sánchez MD) Problem List: (1) Sepsis ICD Codes: A41.9 - Sepsis, unspecified organism Status: Acute Plan: Patient currently being treated for her pneumonia. Placed on septic protocol We'll continue surveillance, and antibiotic broad-spectrum (2) Elevated d-dimer ICD Codes: R79.89 - Other specified abnormal findings of blood chemistry Plan: Negative VQ scan (3) Pneumonia ICD Codes: J18.9 - Pneumonia, unspecified organism Status: Acute Plan: Patient placed on broad-spectrum antibiotics Currently she and is on azithromycin, vancomycin, and Zosyn Switch to PO abx: Azithromycin and Augmentin Plan for D/C tomorrow if continued clinical improvement on PO abx (4) Urinary tract infection ICD Codes: N39.0 - Urinary tract infection, site not specified Status: Acute Plan: + Klebsiella Solorio-Sensitive Will be covered with PO Augmentin (5) fen/ppx Status: Acute Plan: Fluids: speech swallow eval, full diet after Electrolytes: BMP within normal limits, and teens to monitor Nutrition: speech swallow eval, full diet after GI prophylaxis: Not indicated DVT prophylaxis: Lovenox (Ashwini Stuart MD, R1) Problem Qualifiers (1) Sepsis: Qualified Codes: A41.9 - Sepsis, unspecified organism (2) Pneumonia: Qualified Codes: J18.1 - Lobar pneumonia, unspecified organism (3) Urinary tract infection: Qualified Codes: N30.00 - Acute cystitis without hematuria Ashwini Stuart MD, R1 Apr 21, 2017 13:42 Regan Sánchez MD Apr 21, 2017 14:40
[2017-04-21 14:29] LABS: PHOSPHORUS 1.7 MG/DL (2.5-4.9)
[2017-04-21] MEDS ORDERED: PHARMACY ORDERED LAB ONE (14:45)
[2017-04-21 15:22] LABS: FREE T4 1.11 NG/DL (0.76-1.46)
[2017-04-21] MEDS ORDERED: LORA0.5T PO ×2 (18:48→18:53)
== END 2017-04-21 17:47 | DRG 871 ==
LOC: NEPC 14:09 → NEDA 16:08 → N05B 20:21
PROVIDERS: ADMIT Family Medicine; ATTEND Family Medicine
DX: A41.9 Sepsis, unspecified organism (principal); J18.9 Pneumonia, unspecified organism; F03.90 Unspecified dementia, unspecified severity, without behavioral disturbance, psychotic disturbance, mood disturbance, and anxiety; N39.0 Urinary tract infection, site not specified; Y95 Nosocomial condition; B96.1 Klebsiella pneumoniae [K. pneumoniae] as the cause of diseases classified elsewhere; Z66 Do not resuscitate; G31.84 Mild cognitive impairment of uncertain or unknown etiology; E87.6 Hypokalemia; R79.89 Other specified abnormal findings of blood chemistry; I10 Essential (primary) hypertension; Z91.041 Radiographic dye allergy status
CPT/HCPCS: 71045; 71046; 78582; 80048; 80053; 81001; 83605; 83735; 84100; 84439; 84443; 84484; 85007; 85025; 85027; 85379; 85610; 85730; 87040; 87070; 87077; 87086; 87186; 87205; 87804; 93005; 96361; 96365; A9540; A9567; J0456; J0696; J1650; J2543; J3370; J7030; J7050; P9612